=== PATIENT | female | born 1995 | race Caucasian/White ===

== ENCOUNTER → 2018-12-17 | Outpatient (REF) | payer BC | LOC: M LAB REF 10:45 | PROVIDERS: ATTEND Physician Assistant Medical | DX: J02.9 Acute pharyngitis, unspecified (principal) ==

== ENCOUNTER → 2020-09-03 | Outpatient (REF) | payer BC, OTHER ==
[2020-09-03 11:15] LABS: HEMOGLOBIN A1c 4.9 %
[2020-09-03 11:16] LABS: ALT/SGPT 14 U/L (12-78); BILIRUBIN,TOTAL 0.4 MG/DL (0.2-1.0); BLOOD UREA NITROGEN 10 MG/DL (7-18); CALCIUM LEVEL 8.9 MG/DL (8.5-10.1); CARBON DIOXIDE LEVEL 26 MEQ/L (21-32); CHLORIDE LEVEL 104 MEQ/L (98-107); CHOLESTEROL LEVEL 218 MG/DL (<200); CHOLESTEROL RISK RATIO 2.449 (<5); CREATININE FOR GFR 0.82 MG/DL (0.55-1.30); FOLATE 19.8 NG/ML; FREE T4 1.08 NG/DL (0.76-1.46); GLOMERULAR FILTRATION RATE > 60.0 (>60); GLUCOSE, FASTING 81 MG/DL (70-100); HDL CHOLESTEROL 89 MG/DL (>40); LDL CHOLESTEROL 104 MG/DL (<100); NON-HDL-C 129 MG/DL; POTASSIUM SERUM 4.3 MEQ/L (3.5-5.1); SODIUM LEVEL 137 MEQ/L (136-145); TOTAL 25(OH) VITAMIN D 19.8 NG/ML (30.0-100.0); TOTAL PROTEIN 6.8 GM/DL (6.4-8.2); TRIGLYCERIDES LEVEL 123 MG/DL (<150); VITAMIN B12 LEVEL 349 PG/ML
== END ==
LOC: M PLALAB 08:53
PROVIDERS: ATTEND Nurse Practitioner Family
DX: Z13.1 Encounter for screening for diabetes mellitus (principal); F41.9 Anxiety disorder, unspecified; Z13.220 Encounter for screening for lipoid disorders; Z13.21 Encounter for screening for nutritional disorder

== ENCOUNTER → 2020-12-30 | Outpatient (REF) | payer BC, OTHER | LOC: M SFHCPLAZ 12:57 | PROVIDERS: ATTEND Nurse Practitioner Family | DX: E55.9 Vitamin D deficiency, unspecified (principal) ==

== ENCOUNTER → 2021-05-04 | Outpatient (REF) | payer BC, OTHER | LOC: M LAB REF 17:19 | PROVIDERS: ATTEND Physician Assistant | DX: R05 Cough (principal) ==

== ENCOUNTER → 2021-05-06 | Outpatient (CLI) | payer BC, OTHER ==
[2021-05-06 17:06] LABS: FREE T4 1.07 NG/DL (0.76-1.46); THYROID STIMULATING HORMONE 1.5 uIU/ML (0.358-3.740); TOTAL 25(OH) VITAMIN D 24.1 NG/ML (30.0-100.0)
== END ==
LOC: M LAB 15:32
PROVIDERS: ATTEND Nurse Practitioner Family
DX: E03.9 Hypothyroidism, unspecified (principal)

== ENCOUNTER 2021-06-23 14:50 | Emergency (ER) | payer BC, OTHER ==
[~2021-06-23] VITALS: Ht 165.1 cm; Wt 63.1 kg
[2021-06-23 14:51] VITALS: BP 153/79
[2021-06-23] MEDS ORDERED: PREN1CHW6 PO (15:10)
[2021-06-23] MEDS ORDERED: D31000TA2 PO (15:10)
== END 2021-06-23 21:28 | disposition left against medical advice (07) ==
LOC: M ED 14:50
DX: Z53.29 Procedure and treatment not carried out because of patient's decision for other reasons (principal)

== ENCOUNTER → 2021-06-26 | Outpatient (CLI) | payer OTHER ==
[~2021-06-26] MED LIST: D31000TA2 PO; PREN1CHW6 PO
== END ==
LOC: M PLALAB 15:29
PROVIDERS: ATTEND Nurse Practitioner Family
DX: O20.0 Threatened abortion (principal)

== ENCOUNTER → 2021-07-23 | Outpatient (CLI) | payer OTHER | LOC: M PLALAB 15:56 | PROVIDERS: ATTEND Nurse Practitioner Family | DX: Z32.00 Encounter for pregnancy test, result unknown (principal) ==

== ENCOUNTER → 2021-09-04 | Outpatient (CLI) | payer OTHER ==
[2021-09-04 19:13] LABS: HEMATOCRIT 38.5 % (36.0-47.0); HEMOGLOBIN 13.1 g/dl (12.0-15.5); MEAN CORPUSCULAR VOLUME 91.2 fl (80.0-96.0); PLATELET COUNT, AUTOMATED 285 10^3/uL (150-450); RED BLOOD COUNT 4.22 10^6/uL (4.00-5.40); WHITE BLOOD COUNT 10.4 10^3/uL (4.0-10.0)
[2021-09-04 20:27] LABS: HEPATITIS C VIRUS ABY INDEX < 0.0 INDEX (<0.8); HIV 1&2 SCREEN CENTAUR NEGATIVE (NEGATIVE)
[2021-09-04 20:52] LABS: GC DNA AMPLIFICATION NEGATIVE (NEGATIVE)
== END ==
LOC: M LAB 17:54
PROVIDERS: ATTEND Obstetrics & Gynecology
DX: Z34.82 Encounter for supervision of other normal pregnancy, second trimester (principal)

== ENCOUNTER → 2021-11-13 | Outpatient (CLI) | payer BC, OTHER ==
[~2021-11-13] MED LIST changes: -D31000TA2 PO; +VITA100093 PO
== END ==
LOC: M WHC 09:57
PROVIDERS: ATTEND Obstetrics & Gynecology
DX: Z34.82 Encounter for supervision of other normal pregnancy, second trimester (principal)

== ENCOUNTER → 2021-12-12 | Outpatient (CLI) | payer OTHER, BC ==
[2021-12-12 10:40] LABS: HEMATOCRIT 37.1 % (36.0-47.0); HEMOGLOBIN 12.5 g/dl (12.0-15.5); MEAN CORPUSCULAR HEMOGLOBIN 32.6 pg (27.0-33.0); MEAN CORPUSCULAR HGB CONC 33.7 g/dl (32.0-36.5); MEAN CORPUSCULAR VOLUME 96.6 fl (80.0-96.0); PLATELET COUNT, AUTOMATED 200 10^3/uL (150-450); RED BLOOD COUNT 3.84 10^6/uL (4.00-5.40); WHITE BLOOD COUNT 9.6 10^3/uL (4.0-10.0)
[2021-12-12 12:06] LABS: GC DNA AMPLIFICATION NEGATIVE (NEGATIVE)
== END ==
LOC: M LAB 08:40
PROVIDERS: ATTEND Obstetrics & Gynecology
DX: Z34.02 Encounter for supervision of normal first pregnancy, second trimester (principal); Z3A.00 Weeks of gestation of pregnancy not specified

== ENCOUNTER → 2021-12-30 | Outpatient (CLI) | payer OTHER, BC | LOC: M LAB 06:56 | PROVIDERS: ATTEND Obstetrics & Gynecology | DX: Z34.82 Encounter for supervision of other normal pregnancy, second trimester (principal) ==

== ENCOUNTER → 2022-03-03 | Outpatient (REF) | payer OTHER, BC | LOC: M PLALAB 08:33 | PROVIDERS: ATTEND Obstetrics & Gynecology | DX: Z36.85 Encounter for antenatal screening for Streptococcus B (principal); Z3A.36 36 weeks gestation of pregnancy | CPT/HCPCS: 87081; G0463 ==

== ENCOUNTER 2022-03-22 03:38 | Inpatient (IN) | payer OTHER, BC ==
[2022-03-22] VITALS (19 sets, daily range): BP systolic 104–148; BP diastolic 51–93
[~2022-03-22] VITALS: Ht 165.1 cm; Wt 78.1 kg
[2022-03-22 04:32] LABS: HEMATOCRIT 36.3 % (36.0-47.0); HEMOGLOBIN 12.1 g/dl (12.0-15.5); MEAN CORPUSCULAR HEMOGLOBIN 29.5 pg (27.0-33.0); MEAN CORPUSCULAR HGB CONC 33.3 g/dl (32.0-36.5); MEAN CORPUSCULAR VOLUME 88.5 fl (80.0-96.0); PLATELET COUNT, AUTOMATED 228 10^3/uL (150-450)
[2022-03-22] MEDS ORDERED: FENTANYL 2MCG/ML ROPIVACAINE 0.2% IN 0.9% NACL 100ML IVBAG As Ordered ONE (05:09)
[2022-03-22] MEDS ORDERED: FENTANYL/ROPIVACAINE/NACL BAG 100 ML EPIDURAL SCH (05:35)
[2022-03-22] MEDS ORDERED: ePHEDrine SULFATE 25 MG/5 ML(5MG/ML) SYRINGE IVP PRN (05:35)
[2022-03-22] MEDS ORDERED: NALOXONE INJ 0.4MG/1ML VIAL (J2310 PER 1MG) IV PRN (05:35)
[2022-03-22] MEDS ORDERED: diphenhydrAMINE 50MG/ML VIAL (J1200) IV PRN (05:35)
[2022-03-22] MEDS ORDERED: ONDANSETRON 4MG 2ML VIAL IV PRN (05:35)
[2022-03-22] MEDS ORDERED: EPIDURAL/PCA KEYS XX PRN (05:35)
[2022-03-22] MEDS ORDERED: LR 500 ML IV PRN (05:35)
[2022-03-22] MEDS ORDERED: OXYTOCIN 30 UNITS IN 0.9% NaCl 500ML IV BAG (J2590) As Ordered ONE (06:50)
[2022-03-22] MEDS ORDERED: OXYTOCIN DRIP 30 UNITS in IV 1 EA IV SCH ×2 (06:50→08:30)
[2022-03-22 08:26] LABS: CORD GAS HCO3 A 22.8 MEQ/L; CORD GAS O2 SAT A 60.1 %; CORD GAS PCO2 A 47.6 mmHg; CORD GAS PH A 7.298 UNITS; CORD GAS PO2 A 25.9 mmHg; CORD GAS SBC A 20.2 MEQ/L; CORD GAS TCO2 A 24.3 MEQ/L
[2022-03-22 08:28] LABS: CORD GAS ABE V -3.4; CORD GAS HCO3 V 21.7 MEQ/L; CORD GAS O2 SAT V 58.8 %; CORD GAS PCO2 V 39.7 mmHg; CORD GAS PH V 7.356 UNITS; CORD GAS PO2 V 23.1 mmHg; CORD GAS SBC V 20.6 MEQ/L; CORD GAS TCO2 V 22.9 MEQ/L
[2022-03-22] MEDS ORDERED: RHOGAM 300 MCG (1500 IU) INJ (J2790) IM SCH (08:30)
[2022-03-22] MEDS ORDERED: DIBUCAINE 1% OINTMENT 30GM TOP PRN (08:30)
[2022-03-22] MEDS ORDERED: METHYLERGONOVINE MALEATE 0.2 MG TAB PO PRN (08:30)
[2022-03-22] MEDS ORDERED: IBUPROFEN 800 MG TAB PO PRN (08:30)
[2022-03-22] MEDS ORDERED: ACETAMINOPHEN TAB 650MG DOSE (2X325MG) PO PRN (08:30)
[2022-03-22] MEDS: PRENATAL VITAMINS CHEWABLE TABLET PO SCH (09:00)
[2022-03-22] MEDS: ACETAMINOPHEN 500 MG TAB PO PRN (19:49)
[2022-03-22] MEDS: DOCUSATE SODIUM 100MG CAPSULE PO PRN (19:49)
[2022-03-23] MEDS: IBUPROFEN 600MG TAB PO PRN ×3 (00:14→22:24)
[2022-03-23 06:00] VITALS: BP 111/57
[2022-03-23] MEDS: PRENATAL VITAMINS CHEWABLE TABLET PO SCH (08:19)
[2022-03-23] MEDS ORDERED: CALCIUM CARBONATE 500 MG CHEW U/D PO PRN (12:35)
[2022-03-23 17:50] VITALS: BP 119/60
[2022-03-23] MEDS: DOCUSATE SODIUM 100MG CAPSULE PO PRN (20:05)
[2022-03-24 06:00] VITALS: BP 116/57
[2022-03-24] MEDS: PRENATAL VITAMINS CHEWABLE TABLET PO SCH (07:20)
[2022-03-24] MEDS: ACETAMINOPHEN 500 MG TAB PO PRN (07:21)
[2022-03-24] MEDS ORDERED: ACET-683 PO (08:40)
[2022-03-24] MEDS ORDERED: IBUP80TA PO (08:40)
[2022-03-24] MEDS ORDERED: MEASLES,MUMPS,RUBELLA VACCINE INJ (MMR-II) (90707) SC.IMMUN ONE (09:00)
== END 2022-03-24 10:42 | disposition home or self-care (01) | DRG 807 ==
LOC: M LDO 03:38 → M LDI 04:31 → M OBS 10:56
PROVIDERS: ADMIT Obstetrics & Gynecology; ATTEND Obstetrics & Gynecology
PROC: 10E0XZZ Delivery of Products of Conception, External Approach (ICD-10-PCS; principal; 2022-03-22)
PROC: 0HQ9XZZ Repair Perineum Skin, External Approach (ICD-10-PCS; 2022-03-22)
PROC: 10907ZC Drainage of Amniotic Fluid, Therapeutic from Products of Conception, Via Natural or Artificial Opening (ICD-10-PCS; 2022-03-22)
DX: O70.0 First degree perineal laceration during delivery (principal); Z37.0 Single live birth; Z3A.39 39 weeks gestation of pregnancy

== ENCOUNTER → 2023-02-01 | Outpatient (REF) ==
[~2023-02-01] MED LIST changes: +ACET-683 PO; +IBUP80TA PO
== END ==
LOC: M EMP 13:40
PROVIDERS: ATTEND Family Medicine
DX: Z20.822 Contact with and (suspected) exposure to COVID-19 (principal)

== ENCOUNTER → 2023-07-13 | Outpatient (CLI) | payer BC ==
[2023-07-13 17:57] LABS: HEMATOCRIT 38.7 % (36.0-47.0); HEMOGLOBIN 13.4 g/dl (12.0-15.5); MEAN CORPUSCULAR HEMOGLOBIN 31.8 pg (27.0-33.0); MEAN CORPUSCULAR HGB CONC 34.6 g/dl (32.0-36.5); MEAN CORPUSCULAR VOLUME 91.9 fl (80.0-96.0); PLATELET COUNT, AUTOMATED 260 10^3/uL (150-450); RED BLOOD COUNT 4.21 10^6/uL (4.00-5.40)
[2023-07-13 18:44] LABS: HIV 1&2 SCREEN NEGATIVE (NEGATIVE)
[2023-07-13 18:52] LABS: HEPATITIS C VIRUS ABY INDEX 0.02 INDEX (<0.8)
[2023-07-13 20:43] LABS: CHLAMYDIA DNA AMPLIFICATION NEGATIVE (NEGATIVE); GC DNA AMPLIFICATION NEGATIVE (NEGATIVE)
== END ==
LOC: M PLALAB 15:33
PROVIDERS: ATTEND Obstetrics & Gynecology
DX: Z34.82 Encounter for supervision of other normal pregnancy, second trimester (principal)

== ENCOUNTER → 2023-09-08 | Outpatient (CLI) | payer BC | LOC: M RAD 15:28 | PROVIDERS: ATTEND Specialist | DX: Z34.82 Encounter for supervision of other normal pregnancy, second trimester (principal); Z36.89 Encounter for other specified antenatal screening; Z3A.20 20 weeks gestation of pregnancy ==

== ENCOUNTER → 2023-10-25 | Outpatient (CLI) | payer BC ==
[2023-10-25 10:26] LABS: HEMATOCRIT 35.5 % (36.0-47.0); HEMOGLOBIN 12.1 g/dl (12.0-15.5); MEAN CORPUSCULAR HEMOGLOBIN 31.6 pg (27.0-33.0); MEAN CORPUSCULAR HGB CONC 34.1 g/dl (32.0-36.5); MEAN CORPUSCULAR VOLUME 92.7 fl (80.0-96.0); PLATELET COUNT, AUTOMATED 223 10^3/uL (150-450); RED BLOOD COUNT 3.83 10^6/uL (4.00-5.40); WHITE BLOOD COUNT 10.7 10^3/uL (4.0-10.0)
== END ==
LOC: M LAB 09:18
PROVIDERS: ATTEND Obstetrics & Gynecology
DX: Z34.92 Encounter for supervision of normal pregnancy, unspecified, second trimester (principal)

== ENCOUNTER → 2023-10-28 | Outpatient (CLI) | payer BC ==
[2023-10-28 10:18] LABS: GC DNA AMPLIFICATION NEGATIVE (NEGATIVE)
== END ==
LOC: M LAB 06:11
PROVIDERS: ATTEND Obstetrics & Gynecology
DX: Z34.92 Encounter for supervision of normal pregnancy, unspecified, second trimester (principal)

== ENCOUNTER → 2023-11-10 | Outpatient (CLI) | payer BC | LOC: M LAB 06:21 | PROVIDERS: ATTEND Obstetrics & Gynecology | DX: O99.810 Abnormal glucose complicating pregnancy (principal) ==

== ENCOUNTER → 2023-12-29 | Outpatient (REF) | payer BC | LOC: M SFHCWAGY 15:09 | PROVIDERS: ATTEND Specialist | DX: Z34.83 Encounter for supervision of other normal pregnancy, third trimester (principal); Z36.85 Encounter for antenatal screening for Streptococcus B ==

== ENCOUNTER 2024-01-22 08:11 | Inpatient (IN) | payer BC ==
[~2024-01-22] VITALS: Ht 167.6 cm; Wt 82.4 kg
[2024-01-22] MEDS ORDERED: HOME MED LIST COMPLETE! XX SCH (08:50)
[2024-01-22] MEDS ORDERED: OXYTOCIN DRIP 30 UNITS in IV 1 EA IV PRN (09:05)
[2024-01-22] MEDS ORDERED: LIDOCAINE 1% MDV 20ML VIAL INFIL PRN (09:05)
[2024-01-22] MEDS ORDERED: TRANEXAMIC ACID INJection 1,000 MG in NS 100 ML IV PRN (09:05)
[2024-01-22] MEDS ORDERED: CARBOPROST TROMETHAMINE 250 MCG/ML AMP IM PRN (09:05)
[2024-01-22 09:16] VITALS: BP 136/69
[2024-01-22 09:30] LABS: HEMOGLOBIN 11.2 g/dl (12.0-15.5); MEAN CORPUSCULAR HEMOGLOBIN 28.1 pg (27.0-33.0); MEAN CORPUSCULAR HGB CONC 32.9 g/dl (32.0-36.5); MEAN CORPUSCULAR VOLUME 85.2 fl (80.0-96.0); PLATELET COUNT, AUTOMATED 215 10^3/uL (150-450); RED BLOOD COUNT 3.99 10^6/uL (4.00-5.40)
[2024-01-22] MEDS: miSOPROStol 50MCG 1/2 TABLET PO PRN (14:40)
[2024-01-22 19:08] VITALS: BP 118/58
[2024-01-22 20:10] VITALS: BP 124/69
[2024-01-23] VITALS (25 sets, daily range): BP systolic 98–131; BP diastolic 50–84; O2SAT 98
[2024-01-23] MEDS: ONDANSETRON 4MG 2ML VIAL IV ONE (01:16)
[2024-01-23] MEDS: LACTATED RINGER'S 1000 ML IV STA (02:19)
[2024-01-23] MEDS ORDERED: diphenhydrAMINE 50MG/ML VIAL IV PRN (02:35)
[2024-01-23] MEDS ORDERED: LR 500 ML IV PRN (02:35)
[2024-01-23] MEDS ORDERED: NALOXONE INJ 0.4MG/1ML VIAL IV PRN (02:35)
[2024-01-23] MEDS ORDERED: EPIDURAL/PCA KEYS XX PRN (02:35)
[2024-01-23] MEDS ORDERED: ePHEDrine SULFATE 25 MG/5 ML(5MG/ML) SYRINGE IVP PRN (02:35)
[2024-01-23] MEDS ORDERED: ONDANSETRON 4MG 2ML VIAL IV PRN (02:35)
[2024-01-23] MEDS: FENTANYL/ROPIVACAINE/NACL BAG 100 ML EPIDURAL SCH (02:51)
[2024-01-23] MEDS: LR 1,000 ML IV SCH (02:53)
[2024-01-23] MEDS: OXYTOCIN DRIP 30 UNITS in IV 1 EA IV SCH ×2 (04:57→08:45)
[2024-01-23] MEDS ORDERED: METHYLERGONOVINE MALEATE 0.2 MG TAB PO PRN (08:20)
[2024-01-23] MEDS ORDERED: ACETAMINOPHEN TAB 650MG DOSE (2X325MG) PO PRN (08:20)
[2024-01-23] MEDS ORDERED: RHO(D) IMMUNE GLOBULIN/MALTOSE 500MCG(2500IU)/2.2ML VIAL (WINRHO) IM SCH (08:20)
[2024-01-23] MEDS ORDERED: DIBUCAINE 1% OINTMENT 30GM TOP PRN (08:20)
[2024-01-23] MEDS ORDERED: IBUPROFEN 600MG TAB PO PRN (08:20)
[2024-01-23] MEDS ORDERED: DOCUSATE SODIUM 100MG CAPSULE PO PRN (08:20)
[2024-01-23 08:36] LABS: CORD GAS ABE A -5.7; CORD GAS HCO3 A 23.4 MMOL/L; CORD GAS O2 SAT A 24.1 %; CORD GAS PCO2 A 60.6 mmHg; CORD GAS PH A 7.204 UNITS; CORD GAS PO2 A 15.1 mmHg; CORD GAS SBC A 18.1 MMOL/L; CORD GAS TCO2 A 25.2 MMOL/L
[2024-01-23 08:39] LABS: CORD GAS ABE V -3.4; CORD GAS HCO3 V 23.5 MMOL/L; CORD GAS O2 SAT V 56.4 %; CORD GAS PCO2 V 48.8 mmHg; CORD GAS PH V 7.3 UNITS; CORD GAS PO2 V 24.5 mmHg; CORD GAS SBC V 20.6 MMOL/L
[2024-01-23] MEDS: PRENATAL VITAMINS CHEWABLE TABLET PO SCH (09:00)
[2024-01-23] MEDS: IBUPROFEN 800 MG TAB PO PRN (10:46)
[2024-01-23] MEDS: ACETAMINOPHEN 500 MG TAB PO PRN (12:21)
[2024-01-24 06:00] VITALS: BP 120/56; O2SAT 98
[2024-01-24] MEDS ORDERED: IBUP80TA PO (13:45)
[2024-01-24] MEDS ORDERED: ACET-683 PO (13:45)
[2024-01-25] MEDS ORDERED: MEASLES,MUMPS,RUBELLA VACCINE INJ (MMR-II) SC.IMMUN ONE (09:00)
== END 2024-01-24 18:31 | disposition home or self-care (01) | DRG 560 ==
LOC: M LDI 08:11 → M OBS 01-23 10:25
PROVIDERS: ADMIT Obstetrics & Gynecology; ATTEND Obstetrics & Gynecology
PROC: 3E0P7GC Introduction of Other Therapeutic Substance into Female Reproductive, Via Natural or Artificial Opening (ICD-10-PCS; 2024-01-22)
PROC: 10E0XZZ Delivery of Products of Conception, External Approach (ICD-10-PCS; principal; 2024-01-23)
PROC: 10907ZC Drainage of Amniotic Fluid, Therapeutic from Products of Conception, Via Natural or Artificial Opening (ICD-10-PCS; 2024-01-23)
DX: O80 Encounter for full-term uncomplicated delivery (principal); Z37.0 Single live birth; Z3A.39 39 weeks gestation of pregnancy

== ENCOUNTER → 2025-04-10 | Outpatient (CLI) | payer BC ==
[2025-04-10 08:02] LABS: BASO # 0.0 10^3/uL (0.0-0.2); BASO % 0.2 % (0.0-1.0); EOS # 0.2 10^3/uL (0.0-0.5); EOS % 2.2 % (0.0-3.0); LYMPH # 2.2 10^3/uL (1.5-5.0); LYMPH % 25.0 % (24.0-44.0); MONO # 0.6 10^3/uL (0.0-0.8); MONO % 6.4 % (2.0-8.0); NEUTROPHILS # 5.9 10^3/uL (1.5-8.5); NEUTROPHILS % 65.9 % (36.0-66.0); PLATELET COUNT, AUTOMATED 248 10^3/uL (150-450)
[2025-04-10 08:36] LABS: IRON (FE) 176 UG/DL (50-170); TOTAL 25(OH) VITAMIN D 21.8 NG/ML (20.0-100.0)
[2025-04-10 08:37] LABS: ALT/SGPT 14 U/L (7.0-40); AST/SGOT 21 U/L (<34); CALCIUM LEVEL 9.4 MG/DL (8.5-10.1); CARBON DIOXIDE LEVEL 27 MMOL/L (20-31); CHLORIDE LEVEL 106 MMOL/L (98-107); CREATININE FOR GFR 0.83 MG/DL (0.55-1.30); GLOMERULAR FILTRATION RATE > 90.0 (>60); MAGNESIUM LEVEL 1.8 MG/DL (1.8-2.4); PERCENT SATURATION 46.0 % (13.2-45.0); POTASSIUM SERUM 4.5 MMOL/L (3.5-5.1); SODIUM LEVEL 142 MMOL/L (136-145)
[2025-04-10 08:38] LABS: FREE T4 1.23 NG/DL (0.89-1.76)
[2025-04-10 08:39] LABS: VITAMIN B12 LEVEL 466 PG/ML (211-911)
== END ==
LOC: M LAB 06:35
PROVIDERS: ATTEND Nurse Practitioner Family
DX: F43.23 Adjustment disorder with mixed anxiety and depressed mood (principal); R51.9 Headache, unspecified

== ENCOUNTER → 2025-08-14 | Outpatient (REF) | payer BC ==
[~2025-08-14] MED LIST changes: +SERT-141 PO
[2025-08-17 06:22] LABS: HPV APTIMA Not Detected (Not Detected)
== END ==
LOC: M PLALAB 15:55
PROVIDERS: ATTEND Student in an Organized Health Care Education/Training Program
DX: Z12.4 Encounter for screening for malignant neoplasm of cervix (principal)
CPT/HCPCS: 87624; G0123